=== PATIENT | female | born 1970 | race Caucasian/White ===

== ENCOUNTER → 2020-08-13 | Outpatient (CLI) | payer BC ==
--- NOTE | 2020-08-14 19:01 | MAM ---
EXAM DESCRIPTION: 3D Screening BILATERAL : Digital Mammography. CLINICAL HISTORY: 50 years Female screening . No complaints. Mother with breast cancer age 51. Menarche age 10. No Childbirth. Premenopausal. No HRT. Lifetime risk of developing breast cancer (Tyrer-Cuzick model)(%): 16.3. COMPARISON: Baseline study at this facility. Prior studies at outside imaging facility not yet available. No prior reports available. TECHNIQUE: Bilateral CC and MLO projection full-field images, digital tomosynthesis mammographic technique. Bilateral digital 2-D full-field MLO images. CAD available for 2-D images. FINDINGS: The breast parenchymal density pattern is: Scattered areas of fibroglandular density. No skin thickening or nipple retraction. Axillary nodes. Mass density such as lymph node versus focal asymmetry upper outer quadrant posterior third right breast no calcifications. No new focal, stellate mass or density, focal asymmetry , and no suspicious microcalcifications left breast. IMPRESSION: BI-RADS CATEGORY: 0 - INCOMPLETE- Need prior mammograms for comparison. RECOMMENDATIONS: FOLLOW-UP: Comparison with prior examination(s) when available. Written communication explaining the results and follow-up will be mailed to the patient and referring care provider. Electronically signed by: Jose Manuel Manley MD 08/14/2020 6:59 PM CORRIDOR REDEVELOPMENT MANAGER
== END ==
LOC: MAMMO 08:16
PROVIDERS: ATTEND Emergency Medicine
DX: Z12.31 Encounter for screening mammogram for malignant neoplasm of breast (principal)

== ENCOUNTER → 2020-09-19 | Outpatient (CLI) | payer BC, SELFPAY ==
--- NOTE | 2020-09-20 14:05 | US ---
EXAM DESCRIPTION: Pelvis Transvaginal: Ultrasound. CLINICAL HISTORY: 50 years Female ABN VAGINAL BLEEDING 0. LMP unknown. COMPARISON: None. TECHNIQUE: Endovaginal scanning; Velazco-scale and Doppler modes. FINDINGS: Uterus 3.5 x 2.6 x 6.0 cm 30.4 mL. Uterus retroverted. Endometrial thickness 2.1 mm. Myometrium heterogeneous. 3.1 mm echogenic calcification. Also 1 x 1 mm calcification. Cervix complex cyst 6.2 millimeters 3.1 mm calcification. Cul-de-sac no fluid. Right ovary 1.5 x 1.9 x 1.3 cm 1.3 mL.. Normal color Doppler vascularity. 1.7 x 1.5 cm simple follicle; no cysts. No adnexal mass or free fluid. Left ovary 2.0 x 0.9 x 1.3 cm 1.8 mL volume. 2.3 mm calcification.. Normal color Doppler vascularity. Hypoechoic/anechoic follicle 6.6 x 6.0 mm; no cysts. No adnexal mass or free fluid. IMPRESSION: 1. Small uterus which is retroverted. Normal thickness of the endometrium without fluid. Heterogeneous myometrium with calcification. Complex cyst in the cervix with calcifications. No fluid in the cul-de-sac. 2. Bilateral ovaries with follicles but no cysts. Normal vascularity. No adnexal mass or free fluid. Electronically signed by: Jose Manuel Manley MD 09/20/2020 2:04 PM AUXILIARY PLANT OPERATOR
== END ==
LOC: US 12:43
PROVIDERS: ATTEND Emergency Medicine
DX: N85.4 Malposition of uterus (principal); N93.9 Abnormal uterine and vaginal bleeding, unspecified